=== PATIENT | male | born 1945 | race Caucasian/White ===

== ENCOUNTER 2023-05-27 20:15 | Emergency (ER) | payer MEDICARE ==
[2023-05-27] MEDS ORDERED: Sodium Chloride 0.9% 1,000 ML IV ONE ×2 (20:52→22:16)
[2023-05-27 21:09] LABS: BASOPHILS ABSOLUTE AUTO 0.01 K/uL (0.00-0.10); BASOPHILS PERCENT AUTO 0.1 % (0.1-1.3); HEMATOCRIT 38.2 % (38.4-49.7); HEMOGLOBIN 12.6 g/dL (12.9-16.9); IMMATURE GRAN ABSOLUTE AUTO 0.03 K/uL (0.00-0.23); IMMATURE GRAN PERCENT AUTO 0.4 % (0.0-0.7); LYMPHOCYTES ABSOLUTE AUTO 0.86 K/uL (0.8-3.3); LYMPHOCYTES PERCENT AUTO 10.3 % (11.4-47.7); MEAN CORPUSCULAR HEMOGLOBIN 31.5 pg (31.6-35.5); MEAN CORPUSCULAR VOLUME 95.5 fL (81.4-99.0); MONOCYTES ABSOLUTE AUTO 0.34 K/uL (0.20-0.90); MONOCYTES PERCENT AUTO 4.1 % (3.3-12.6); NEUTROPHILS ABSOLUTE AUTO 7.12 K/uL (1.0-7.6); NEUTROPHILS PERCENT AUTO 85.1 % (40.0-78.1); PLATELET COUNT,PLT 248 K/uL (130-375); WHITE BLOOD CELL COUNT,WBC 8.4 K/uL (3.2-11.0)
[2023-05-27] MEDS ORDERED: Aspirin 81 MG Tab.Chew PO ONE (21:12)
[2023-05-27] MEDS ORDERED: Sodium Chloride 0.9% 50 ML IV SCH (21:30)
[2023-05-27] MEDS ORDERED: Iopamidol 612 MG/ML 100 ML Bottle IV SCH (21:30)
[2023-05-27 21:32] LABS: CALCIUM 8.7 mg/dL (8.5-10.1); CREATININE 1.6 mg/dL (0.8-1.3); EST CRCL DRUG DOSING (CG) 41.09 mL/min; POTASSIUM,K 4.7 mmol/L (3.6-5.2)
[2023-05-27 21:33] LABS: ANION GAP 14.7 mmol/L (5.0-14.0); TROPONIN I HIGH SENSITIVITY 83.4 pg/mL (<=60.3)
[2023-05-27] MEDS ORDERED: Diltiazem 25 MG/5 ML SDV IVPUSH ONE ×2 (21:47→22:10)
[2023-05-27] MEDS ORDERED: Amiodarone 150 MG/3 ML SDV IVPUSH ONE ×2 (23:33→23:39)
[2023-05-27] MEDS ORDERED: Amiodarone In Dextrose,Iso-Osm 150 MG in Premix Bag 1 BAG IV ONE ×4 (23:45→23:55)
== END 2023-05-28 03:03 | disposition home or self-care (01) ==
LOC: JP.ED 20:15
DX: K59.00 Constipation, unspecified (principal); I47.20 Ventricular tachycardia, unspecified; I48.91 Unspecified atrial fibrillation; E78.00 Pure hypercholesterolemia, unspecified; I10 Essential (primary) hypertension; I25.2 Old myocardial infarction; K21.9 Gastro-esophageal reflux disease without esophagitis; Z95.810 Presence of automatic (implantable) cardiac defibrillator; Z95.5 Presence of coronary angioplasty implant and graft; Z87.891 Personal history of nicotine dependence; Z79.01 Long term (current) use of anticoagulants; Z79.02 Long term (current) use of antithrombotics/antiplatelets; Z79.899 Other long term (current) drug therapy; Z88.8 Allergy status to other drugs, medicaments and biological substances
CPT/HCPCS: 36415; 71045; 71045-26; 74177; 80048; 83605; 84484; 85025; 86140; 93005; 96361; 96365; 96375; 99284-25; A9270-GY; J0282; J3490; J7030; Q9967

== ENCOUNTER 2023-06-24 23:29 | Emergency (ER) | payer MEDICARE ==
[2023-06-24] MEDS ORDERED: Sodium Chloride 0.9% 10 ML Syringe FLUSH PRN (23:31)
[2023-06-24 23:40] LABS: EOSINOPHILS ABSOLUTE AUTO 0.02 K/uL (0.00-0.40); EOSINOPHILS PERCENT AUTO 0.3 % (0.0-5.4); HEMATOCRIT 36.5 % (38.4-49.7); HEMOGLOBIN 11.5 g/dL (12.9-16.9); IMMATURE GRAN ABSOLUTE AUTO 0.01 K/uL (0.00-0.23); IMMATURE GRAN PERCENT AUTO 0.2 % (0.0-0.7); LYMPHOCYTES ABSOLUTE AUTO 0.57 K/uL (0.8-3.3); LYMPHOCYTES PERCENT AUTO 8.8 % (11.4-47.7); MEAN CORPUSCULAR HGB CONC 31.5 g/dL (31.6-35.5); MEAN CORPUSCULAR VOLUME 98.4 fL (81.4-99.0); MONOCYTES ABSOLUTE AUTO 0.55 K/uL (0.20-0.90); MONOCYTES PERCENT AUTO 8.5 % (3.3-12.6); NEUTROPHILS ABSOLUTE AUTO 5.34 K/uL (1.0-7.6); NEUTROPHILS PERCENT AUTO 82.2 % (40.0-78.1); PLATELET COUNT,PLT 159 K/uL (130-375); RED BLOOD CELL COUNT 3.71 M/uL (4.14-5.76); WHITE BLOOD CELL COUNT,WBC 6.5 K/uL (3.2-11.0)
[2023-06-24 23:50] LABS: A/G RATIO 1.3 (1.2-2.2); ALANINE AMINOTRANSFERASE,ALT 31 U/L (12-78); ALBUMIN 3.1 g/dL (3.4-5.0); ALKALINE PHOSPHATASE 77 U/L (46-116); ANION GAP 7.8 mmol/L (5.0-14.0); ASPARTATE AMNIOTRANSFERASE,AST 20 U/L (15-37); BILIRUBIN TOTAL 0.6 mg/dL (0.2-1.0); BLOOD UREA NITROGEN,BUN 27 mg/dL (7-18); CALCIUM 8.4 mg/dL (8.5-10.1); CARBON DIOXIDE,CO2 26 mmol/L (21-32); CHLORIDE,CL 106 mmol/L (100-108); CREATININE 1.4 mg/dL (0.8-1.3); EST CRCL DRUG DOSING (CG) 45.57 mL/min; ESTIMATED GFR 51 mL/min (>60); GLUCOSE RANDOM 124 mg/dL (74-106); POTASSIUM,K 3.8 mmol/L (3.6-5.2); PROTEIN TOTAL,TP 5.5 g/dL (6.4-8.2); SODIUM,NA 140 mmol/L (140-148); TROPONIN I HIGH SENSITIVITY 25.2 pg/mL (<=60.3)
[2023-06-25 02:16] LABS: APPEARANCE,URINE CLEAR (CLEAR); BILIRUBIN,URINE NEGATIVE (NEGATIVE); COLOR,URINE YELLOW (YELLOW); GLUCOSE,URINE 500 mg/dL (NEGATIVE); KETONES,URINE NEGATIVE (NEGATIVE); LEUKOCYTE ESTERASE,URINE NEGATIVE (NEGATIVE); NITRITE,URINE NEGATIVE (NEGATIVE); OCCULT BLOOD,URINE NEGATIVE (NEGATIVE); PH,URINE 5.5 (5.0-8.0); PROTEIN,URINE 30 mg/dL (NEGATIVE)
[2023-06-25 02:24] LABS: AMORPHOUS SEDIMENT,URINE NOT SEEN; BACTERIA,URINE RARE; EPITHELIAL CELLS,URINE RARE; MUCUS,URINE NOT SEEN; RBC,URINE 0-5 (0-5); WBC,URINE 0-5 (0-5)
[2023-06-25] MEDS ORDERED: Furosemide 40 MG/4 ML VIAL IVPUSH ONE (03:11)
== END 2023-06-25 04:46 | disposition home or self-care (01) ==
LOC: JP.ED 23:29
DX: I11.0 Hypertensive heart disease with heart failure (principal); I50.23 Acute on chronic systolic (congestive) heart failure; E78.00 Pure hypercholesterolemia, unspecified; I25.10 Atherosclerotic heart disease of native coronary artery without angina pectoris; I25.2 Old myocardial infarction; L21.9 Seborrheic dermatitis, unspecified; Z95.5 Presence of coronary angioplasty implant and graft; Z79.01 Long term (current) use of anticoagulants; Z79.899 Other long term (current) drug therapy
CPT/HCPCS: 36415; 71045; 80053; 81001; 83880; 84484; 85025; 96374; 99285; J1940; J3490

== ENCOUNTER 2023-06-26 15:17 | Inpatient (IN) | payer MEDICARE ==
[2023-06-26 16:57] LABS: BASE EXCESS ARTERIAL 0.7 mm/L; CARBOXYHEMOGLOBIN 3.2 % (0.0-1.6); O2 SATURATION ARTERIAL 97.4 % (95.0-98.0); OXYHEMOGLOBIN 93.3 %; PCO2 ARTERIAL 30.7 mmHg (35.0-42.0); PO2 ARTERIAL 87.4 mmHg (75.0-100.0); TOTAL HEMOGLOBIN 12.2 g/dL (13.5-18.0)
[2023-06-26] MEDS ORDERED: Sodium Chloride 0.9% 1,000 ML IV SCH ×2 (17:00→18:15)
[2023-06-26 17:39] LABS: BASOPHILS PERCENT AUTO 0.2 % (0.1-1.3); EOSINOPHILS ABSOLUTE AUTO 0.06 K/uL (0.00-0.40); HEMATOCRIT 38.4 % (38.4-49.7); IMMATURE GRAN PERCENT AUTO 0.2 % (0.0-0.7); LYMPHOCYTES ABSOLUTE AUTO 0.83 K/uL (0.8-3.3); LYMPHOCYTES PERCENT AUTO 13.2 % (11.4-47.7); MEAN CORPUSCULAR HEMOGLOBIN 30.7 pg (31.6-35.5); MEAN CORPUSCULAR HGB CONC 31.3 g/dL (31.6-35.5); MEAN CORPUSCULAR VOLUME 98.2 fL (81.4-99.0); MONOCYTES ABSOLUTE AUTO 0.71 K/uL (0.20-0.90); MONOCYTES PERCENT AUTO 11.3 % (3.3-12.6); NEUTROPHILS ABSOLUTE AUTO 4.69 K/uL (1.0-7.6); NEUTROPHILS PERCENT AUTO 74.1 % (40.0-78.1); PLATELET COUNT,PLT 167 K/uL (130-375); RED BLOOD CELL COUNT 3.91 M/uL (4.14-5.76); WHITE BLOOD CELL COUNT,WBC 6.3 K/uL (3.2-11.0)
[2023-06-26 17:40] LABS: BASOPHILS ABSOLUTE AUTO 0.01 K/uL (0.00-0.10); IMMATURE GRAN ABSOLUTE AUTO 0.01 K/uL (0.00-0.23)
[2023-06-26 18:10] LABS: SODIUM,NA 142 mmol/L (140-148)
[2023-06-26 18:11] LABS: A/G RATIO 1.1 (1.2-2.2); ALANINE AMINOTRANSFERASE,ALT 28 U/L (12-78); ALBUMIN 2.9 g/dL (3.4-5.0); ALKALINE PHOSPHATASE 75 U/L (46-116); ASPARTATE AMNIOTRANSFERASE,AST 21 U/L (15-37); BILIRUBIN TOTAL 0.8 mg/dL (0.2-1.0); BLOOD UREA NITROGEN,BUN 24 mg/dL (7-18); CALCIUM 8.2 mg/dL (8.5-10.1); CARBON DIOXIDE,CO2 24 mmol/L (21-32); CHLORIDE,CL 107 mmol/L (100-108); CREATININE 1.2 mg/dL (0.8-1.3); EST CRCL DRUG DOSING (CG) 53.16 mL/min; ESTIMATED GFR 62 mL/min (>60); GLUCOSE RANDOM 101 mg/dL (74-106); POTASSIUM,K 3.2 mmol/L (3.6-5.2); PROTEIN TOTAL,TP 5.5 g/dL (6.4-8.2)
[2023-06-26 18:12] LABS: ANION GAP 14.2 mmol/L (5.0-14.0)
[2023-06-26] MEDS ORDERED: Furosemide 40 MG/4 ML VIAL IVPUSH ONE (18:14)
[2023-06-26] MEDS ORDERED: Potassium Chloride 20 MEQ Tab.ER PO ONE ×2 (18:16→20:41)
[2023-06-26 18:40] LABS: CORONAVIRUS COVID-19 NAA NEGATIVE (NEGATIVE); INFLUENZA A NAA NEGATIVE (NEGATIVE); INFLUENZA B NAA NEGATIVE (NEGATIVE); RESPIRATORY SYNCYTIAL VIR NAA NEGATIVE (NEGATIVE)
[2023-06-26 19:02] LABS: APPEARANCE,URINE CLEAR (CLEAR); BILIRUBIN,URINE NEGATIVE (NEGATIVE); COLOR,URINE YELLOW (YELLOW); GLUCOSE,URINE 500 mg/dL (NEGATIVE); KETONES,URINE NEGATIVE (NEGATIVE); LEUKOCYTE ESTERASE,URINE NEGATIVE (NEGATIVE); NITRITE,URINE NEGATIVE (NEGATIVE); OCCULT BLOOD,URINE NEGATIVE (NEGATIVE); PROTEIN,URINE NEGATIVE (NEGATIVE)
[2023-06-26 19:09] LABS: AMORPHOUS SEDIMENT,URINE NOT SEEN; BACTERIA,URINE FEW; EPITHELIAL CELLS,URINE FEW; MUCUS,URINE MODERATE; RBC,URINE 0-5 (0-5)
[2023-06-26] MEDS ORDERED: Ondansetron 4 MG Tab.DIS PO PRN (20:41)
[2023-06-26] MEDS ORDERED: Sennosides/Docusate Sodium 50-8.6 MG Tab PO PRN (20:41)
[2023-06-26] MEDS ORDERED: Magnesium Hydroxide 400 MG/5 ML Susp 30 ML Cup PO PRN (20:41)
[2023-06-26] MEDS ORDERED: Acetaminophen 325 MG Tab PO PRN (20:41)
[2023-06-26] MEDS ORDERED: Ondansetron 4 MG/2 ML SDV IV PRN (20:41)
[2023-06-26] MEDS ORDERED: Non-Formulary Medication 1 Each (Melatonin [Melatonin] 10 MG Tablet) PO SCH (21:00)
[2023-06-26] MEDS: Gabapentin 400 MG Cap PO SCH (21:17)
[2023-06-26] MEDS: Docusate Sodium 100 MG Cap PO SCH (21:17)
[2023-06-26] MEDS: traZODone 50 MG Tab PO SCH (21:18)
[2023-06-26] MEDS: Carvedilol 3.125 MG Tab PO SCH (21:18)
[2023-06-26] MEDS: Apixaban 5 MG Tab PO SCH (21:18)
[2023-06-26] MEDS: Melatonin 3 MG Tab PO SCH (21:18)
[2023-06-27] MEDS: Furosemide 40 MG/4 ML VIAL IVPUSH SCH ×3 (02:37→23:45)
[2023-06-27 06:02] LABS: HEMATOCRIT 36.3 % (38.4-49.7); HEMOGLOBIN 11.5 g/dL (12.9-16.9); MEAN CORPUSCULAR HEMOGLOBIN 30.9 pg (31.6-35.5); MEAN CORPUSCULAR HGB CONC 31.7 g/dL (31.6-35.5); MEAN CORPUSCULAR VOLUME 97.6 fL (81.4-99.0); RED BLOOD CELL COUNT 3.72 M/uL (4.14-5.76); WHITE BLOOD CELL COUNT,WBC 5.1 K/uL (3.2-11.0)
[2023-06-27 06:30] LABS: IRON,FE 39 ug/dL (65-175); PERCENT FE SATURATION 21 % (20-55); TOTAL IRON BINDING CAPACITY 186 ug/dl (250-450)
[2023-06-27 06:34] LABS: CALCIUM 7.9 mg/dL (8.5-10.1); CREATININE 1.3 mg/dL (0.8-1.3); EST CRCL DRUG DOSING (CG) 49.07 mL/min
[2023-06-27 06:37] LABS: ANION GAP 13.9 mmol/L (5.0-14.0); POTASSIUM,K 2.9 mmol/L (3.6-5.2)
[2023-06-27] MEDS ORDERED: Potassium Chloride 20 MEQ Tab.ER PO ONE ×2 (08:00→12:30)
[2023-06-27] MEDS: Gabapentin 400 MG Cap PO SCH ×3 (08:17→20:06)
[2023-06-27] MEDS: Rosuvastatin 10 MG Tab PO SCH (08:17)
[2023-06-27] MEDS: Carvedilol 3.125 MG Tab PO SCH ×2 (08:17→17:25)
[2023-06-27] MEDS: Losartan 25 MG Tab PO SCH (08:19)
[2023-06-27] MEDS: Tamsulosin 0.4 MG Cap.ER PO SCH (08:19)
[2023-06-27] MEDS: Isosorbide Mononitrate 30 MG Tab.ER PO SCH (08:19)
[2023-06-27] MEDS: Pantoprazole 40 MG Tab.CR PO SCH (08:20)
[2023-06-27] MEDS: Docusate Sodium 100 MG Cap PO SCH ×2 (08:20→20:06)
[2023-06-27] MEDS: DULoxetine 30 MG Cap PO SCH (08:20)
[2023-06-27] MEDS: Empagliflozin 10 MG Tab PO SCH (08:20)
[2023-06-27] MEDS: Amiodarone 200 MG Tab PO SCH (08:20)
[2023-06-27] MEDS: Apixaban 5 MG Tab PO SCH ×2 (08:20→20:06)
[2023-06-27] MEDS: Clopidogrel 75 MG Tab PO SCH (08:20)
[2023-06-27] MEDS: Cyanocobalamin (Vitamin B12) 1,000 MCG Tab PO SCH (08:20)
[2023-06-27] MEDS: Nystatin Topical Powder 15 GM Bottle TOP SCH ×3 (11:24→20:07)
[2023-06-27] MEDS: Melatonin 3 MG Tab PO SCH (20:06)
[2023-06-27] MEDS: Potassium Chloride 20 MEQ Tab.ER PO SCH (20:06)
[2023-06-27] MEDS: traZODone 50 MG Tab PO SCH (20:07)
[2023-06-28 06:19] LABS: CALCIUM 7.8 mg/dL (8.5-10.1); CREATININE 1.3 mg/dL (0.8-1.3); EST CRCL DRUG DOSING (CG) 49.07 mL/min
[2023-06-28] MEDS: Isosorbide Mononitrate 30 MG Tab.ER PO SCH (07:21)
[2023-06-28] MEDS: Carvedilol 3.125 MG Tab PO SCH ×2 (07:22→16:26)
[2023-06-28] MEDS: Pantoprazole 40 MG Tab.CR PO SCH (07:22)
[2023-06-28] MEDS: Docusate Sodium 100 MG Cap PO SCH ×2 (08:51→20:51)
[2023-06-28] MEDS: Losartan 25 MG Tab PO SCH (08:51)
[2023-06-28] MEDS: Tamsulosin 0.4 MG Cap.ER PO SCH (08:51)
[2023-06-28] MEDS: Amiodarone 200 MG Tab PO SCH (08:51)
[2023-06-28] MEDS: Gabapentin 400 MG Cap PO SCH ×3 (08:51→20:52)
[2023-06-28] MEDS: Potassium Chloride 10 MEQ in Premix Bag 1 BAG IV SCH ×2 (08:51→10:00)
[2023-06-28] MEDS: Rosuvastatin 10 MG Tab PO SCH (08:52)
[2023-06-28] MEDS: Nystatin Topical Powder 15 GM Bottle TOP SCH ×3 (08:52→20:53)
[2023-06-28] MEDS: Potassium Chloride 20 MEQ Tab.ER PO SCH ×2 (08:52→20:52)
[2023-06-28] MEDS: Cyanocobalamin (Vitamin B12) 1,000 MCG Tab PO SCH (08:52)
[2023-06-28] MEDS: Apixaban 5 MG Tab PO SCH ×2 (08:52→20:51)
[2023-06-28] MEDS: DULoxetine 30 MG Cap PO SCH (08:52)
[2023-06-28] MEDS: Empagliflozin 10 MG Tab PO SCH (08:53)
[2023-06-28] MEDS: Clopidogrel 75 MG Tab PO SCH (08:53)
[2023-06-28] MEDS: Furosemide 40 MG/4 ML VIAL IVPUSH SCH ×2 (10:03→23:27)
[2023-06-28] MEDS ORDERED: Potassium Chloride 20 MEQ Tab.ER PO ONE (16:00)
[2023-06-28] MEDS: Melatonin 3 MG Tab PO SCH (20:52)
[2023-06-28] MEDS: traZODone 50 MG Tab PO SCH (20:53)
[2023-06-29 05:51] LABS: CALCIUM 8.3 mg/dL (8.5-10.1); CREATININE 1.3 mg/dL (0.8-1.3); EST CRCL DRUG DOSING (CG) 49.07 mL/min; POTASSIUM,K 3.3 mmol/L (3.6-5.2)
[2023-06-29 06:01] LABS: ANION GAP 10.3 mmol/L (5.0-14.0)
[2023-06-29] MEDS: Isosorbide Mononitrate 30 MG Tab.ER PO SCH (07:38)
[2023-06-29] MEDS: Pantoprazole 40 MG Tab.CR PO SCH (07:38)
[2023-06-29] MEDS: Gabapentin 400 MG Cap PO SCH ×3 (08:51→20:09)
[2023-06-29] MEDS: Carvedilol 3.125 MG Tab PO SCH ×2 (08:52→17:09)
[2023-06-29] MEDS: Clopidogrel 75 MG Tab PO SCH (08:52)
[2023-06-29] MEDS: Amiodarone 200 MG Tab PO SCH (08:52)
[2023-06-29] MEDS: Docusate Sodium 100 MG Cap PO SCH ×2 (08:52→20:08)
[2023-06-29] MEDS: Cyanocobalamin (Vitamin B12) 1,000 MCG Tab PO SCH (08:53)
[2023-06-29] MEDS: Rosuvastatin 10 MG Tab PO SCH (08:53)
[2023-06-29] MEDS: Potassium Chloride 20 MEQ Tab.ER PO SCH ×2 (08:53→20:09)
[2023-06-29] MEDS: Losartan 25 MG Tab PO SCH (08:53)
[2023-06-29] MEDS: DULoxetine 30 MG Cap PO SCH (08:53)
[2023-06-29] MEDS: Nystatin Topical Powder 15 GM Bottle TOP SCH ×3 (08:54→20:09)
[2023-06-29] MEDS: Apixaban 5 MG Tab PO SCH ×2 (08:54→20:08)
[2023-06-29] MEDS: Empagliflozin 10 MG Tab PO SCH (08:54)
[2023-06-29] MEDS: Tamsulosin 0.4 MG Cap.ER PO SCH (08:54)
[2023-06-29] MEDS ORDERED: FLU (Fluad Quad) 2023-24(65UP)/MF59C/PF 60 MCG/0.5 ML Syringe IM ONE (09:00)
[2023-06-29] MEDS: Furosemide 40 MG/4 ML VIAL IVPUSH SCH ×2 (10:25→23:18)
[2023-06-29] MEDS ORDERED: Mineral Oil/Petrolatum Oint 100 GM OINT TOP PRN (11:38)
[2023-06-29] MEDS: Melatonin 3 MG Tab PO SCH (20:08)
[2023-06-29] MEDS: traZODone 50 MG Tab PO SCH (20:08)
[2023-06-30] MEDS: Isosorbide Mononitrate 30 MG Tab.ER PO SCH (07:22)
[2023-06-30] MEDS: Pantoprazole 40 MG Tab.CR PO SCH (07:22)
[2023-06-30] MEDS: Carvedilol 3.125 MG Tab PO SCH ×2 (07:23→16:52)
[2023-06-30] MEDS: Rosuvastatin 10 MG Tab PO SCH (08:38)
[2023-06-30] MEDS: Gabapentin 400 MG Cap PO SCH ×3 (08:39→21:47)
[2023-06-30] MEDS: Empagliflozin 10 MG Tab PO SCH (08:39)
[2023-06-30] MEDS: DULoxetine 30 MG Cap PO SCH (08:39)
[2023-06-30] MEDS: Clopidogrel 75 MG Tab PO SCH (08:39)
[2023-06-30] MEDS: Tamsulosin 0.4 MG Cap.ER PO SCH (08:39)
[2023-06-30] MEDS: Apixaban 5 MG Tab PO SCH ×2 (08:39→21:48)
[2023-06-30] MEDS: Cyanocobalamin (Vitamin B12) 1,000 MCG Tab PO SCH (08:39)
[2023-06-30] MEDS: Losartan 25 MG Tab PO SCH (08:39)
[2023-06-30] MEDS: Potassium Chloride 20 MEQ Tab.ER PO SCH ×2 (08:39→21:48)
[2023-06-30] MEDS: Nystatin Topical Powder 15 GM Bottle TOP SCH ×3 (08:40→21:48)
[2023-06-30] MEDS: Docusate Sodium 100 MG Cap PO SCH ×2 (08:40→21:48)
[2023-06-30] MEDS: Amiodarone 200 MG Tab PO SCH (08:40)
[2023-06-30] MEDS: Furosemide 40 MG/4 ML VIAL IVPUSH SCH (11:17)
[2023-06-30] MEDS ORDERED: Potassium Chloride 20 MEQ Tab.ER PO ONE (14:00)
[2023-06-30] MEDS: Melatonin 3 MG Tab PO SCH (21:48)
[2023-06-30] MEDS: traZODone 50 MG Tab PO SCH (21:48)
[2023-06-30] MEDS: Furosemide 40 MG Tab PO SCH (22:00)
[2023-07-01] MEDS: Isosorbide Mononitrate 30 MG Tab.ER PO SCH (07:44)
[2023-07-01] MEDS: Pantoprazole 40 MG Tab.CR PO SCH (07:45)
[2023-07-01] MEDS: Carvedilol 3.125 MG Tab PO SCH (07:45)
[2023-07-01] MEDS: DULoxetine 30 MG Cap PO SCH (10:01)
[2023-07-01] MEDS: Apixaban 5 MG Tab PO SCH (10:01)
[2023-07-01] MEDS: Empagliflozin 10 MG Tab PO SCH (10:01)
[2023-07-01] MEDS: Amiodarone 200 MG Tab PO SCH (10:02)
[2023-07-01] MEDS: Losartan 25 MG Tab PO SCH (10:02)
[2023-07-01] MEDS: Rosuvastatin 10 MG Tab PO SCH (10:02)
[2023-07-01] MEDS: Tamsulosin 0.4 MG Cap.ER PO SCH (10:02)
[2023-07-01] MEDS: Potassium Chloride 20 MEQ Tab.ER PO SCH (10:02)
[2023-07-01] MEDS: Gabapentin 400 MG Cap PO SCH (10:03)
[2023-07-01] MEDS: Nystatin Topical Powder 15 GM Bottle TOP SCH (10:03)
[2023-07-01] MEDS: Clopidogrel 75 MG Tab PO SCH (10:04)
[2023-07-01] MEDS: Cyanocobalamin (Vitamin B12) 1,000 MCG Tab PO SCH (10:04)
[2023-07-01] MEDS: Docusate Sodium 100 MG Cap PO SCH (10:04)
[2023-07-01] MEDS: Furosemide 40 MG Tab PO SCH (11:46)
== END 2023-07-01 13:15 | disposition home health service (06) | DRG 291 ==
LOC: JP.ED 15:17 → JP.MS 19:15
PROVIDERS: ADMIT Internal Medicine; ATTEND Internal Medicine
DX: I11.0 Hypertensive heart disease with heart failure (principal); I13.0 Hypertensive heart and chronic kidney disease with heart failure and stage 1 through stage 4 chronic kidney disease, or unspecified chronic kidney disease; I50.23 Acute on chronic systolic (congestive) heart failure; I48.91 Unspecified atrial fibrillation; I48.20 Chronic atrial fibrillation, unspecified; I25.5 Ischemic cardiomyopathy; Z66 Do not resuscitate; N18.31 Chronic kidney disease, stage 3a; E87.6 Hypokalemia; I25.10 Atherosclerotic heart disease of native coronary artery without angina pectoris; H91.90 Unspecified hearing loss, unspecified ear; Z20.822 Contact with and (suspected) exposure to COVID-19; E78.00 Pure hypercholesterolemia, unspecified; K59.09 Other constipation; K21.9 Gastro-esophageal reflux disease without esophagitis; D63.1 Anemia in chronic kidney disease; Z87.891 Personal history of nicotine dependence; Z79.01 Long term (current) use of anticoagulants; Z79.02 Long term (current) use of antithrombotics/antiplatelets; I25.2 Old myocardial infarction; Z79.899 Other long term (current) drug therapy; Z88.8 Allergy status to other drugs, medicaments and biological substances; Z95.5 Presence of coronary angioplasty implant and graft; Z11.52 Encounter for screening for COVID-19
CPT/HCPCS: 0241U; 36415; 36600; 71045; 80048; 80053; 81001; 82728; 82803; 83550; 83735; 83880; 84132; 85025; 85027; 86140; 90694; 93005; 97110; 97116; 97161; 97530; 93010; 99222; 99232; 99238; 99285; A9270-GY; C1758; G0008; J1940; J3480; J7030

== ENCOUNTER 2023-11-02 15:36 | Emergency (ER) | payer MEDICARE ==
[2023-11-02 16:01] LABS: BASOPHILS ABSOLUTE AUTO 0.03 K/uL (0.00-0.10); BASOPHILS PERCENT AUTO 0.7 % (0.1-1.3); EOSINOPHILS ABSOLUTE AUTO 0.11 K/uL (0.00-0.40); EOSINOPHILS PERCENT AUTO 2.7 % (0.0-5.4); HEMATOCRIT 32.2 % (38.4-49.7); HEMOGLOBIN 10.2 g/dL (12.9-16.9); IMMATURE GRAN PERCENT AUTO 0.2 % (0.0-0.7); LYMPHOCYTES ABSOLUTE AUTO 0.97 K/uL (0.8-3.3); LYMPHOCYTES PERCENT AUTO 23.8 % (11.4-47.7); MEAN CORPUSCULAR HEMOGLOBIN 27.2 pg (31.6-35.5); MEAN CORPUSCULAR HGB CONC 31.7 g/dL (31.6-35.5); MEAN CORPUSCULAR VOLUME 85.9 fL (81.4-99.0); MONOCYTES ABSOLUTE AUTO 0.51 K/uL (0.20-0.90); MONOCYTES PERCENT AUTO 12.5 % (3.3-12.6); NEUTROPHILS ABSOLUTE AUTO 2.45 K/uL (1.0-7.6); NEUTROPHILS PERCENT AUTO 60.1 % (40.0-78.1); PLATELET COUNT,PLT 128 K/uL (130-375); RED BLOOD CELL COUNT 3.75 M/uL (4.14-5.76); WHITE BLOOD CELL COUNT,WBC 4.1 K/uL (3.2-11.0)
[2023-11-02 16:04] LABS: IMMATURE GRAN ABSOLUTE AUTO 0.01 K/uL (0.00-0.23)
[2023-11-02] MEDS: Sodium Chloride 0.9% 1,000 ML IV SCH (16:05)
[2023-11-02 16:26] LABS: CREATININE 1.7 mg/dL (0.8-1.3); EST CRCL DRUG DOSING (CG) 37.53 mL/min; POTASSIUM,K 4.4 mmol/L (3.6-5.2); TROPONIN I HIGH SENSITIVITY 11.2 pg/mL (<=60.3)
[2023-11-02 16:32] LABS: ANION GAP 10.4 mmol/L (5.0-14.0)
[2023-11-02] MEDS: Sodium Chloride 0.9% 500 ML IV ONE (17:19)
== END 2023-11-02 18:44 | disposition home or self-care (01) ==
LOC: JP.ED 15:36
DX: E86.0 Dehydration (principal); I11.0 Hypertensive heart disease with heart failure; I50.9 Heart failure, unspecified; I25.10 Atherosclerotic heart disease of native coronary artery without angina pectoris; I25.2 Old myocardial infarction; K21.9 Gastro-esophageal reflux disease without esophagitis; Z88.8 Allergy status to other drugs, medicaments and biological substances; Z79.899 Other long term (current) drug therapy
CPT/HCPCS: 36415; 71045; 80048; 84484; 85025; 93005; 96360; 96361; 99285; J7030; J7040; 93010; 99284

== ENCOUNTER 2024-02-02 02:33 | Emergency (ER) | payer MEDICARE ==
[2024-02-02] MEDS ORDERED: Nitroglycerin 0.4 MG Tab.SL SL PRN (02:52)
[2024-02-02 03:06] LABS: BASOPHILS ABSOLUTE AUTO 0.02 K/uL (0.00-0.10); BASOPHILS PERCENT AUTO 0.4 % (0.1-1.3); EOSINOPHILS ABSOLUTE AUTO 0.06 K/uL (0.00-0.40); EOSINOPHILS PERCENT AUTO 1.1 % (0.0-5.4); HEMATOCRIT 37.9 % (38.4-49.7); IMMATURE GRAN ABSOLUTE AUTO 0.01 K/uL (0.00-0.23); IMMATURE GRAN PERCENT AUTO 0.2 % (0.0-0.7); LYMPHOCYTES ABSOLUTE AUTO 0.61 K/uL (0.8-3.3); LYMPHOCYTES PERCENT AUTO 10.8 % (11.4-47.7); MEAN CORPUSCULAR HEMOGLOBIN 26.3 pg (31.6-35.5); MEAN CORPUSCULAR HGB CONC 31.7 g/dL (31.6-35.5); MEAN CORPUSCULAR VOLUME 82.9 fL (81.4-99.0); MONOCYTES ABSOLUTE AUTO 0.49 K/uL (0.20-0.90); MONOCYTES PERCENT AUTO 8.6 % (3.3-12.6); NEUTROPHILS ABSOLUTE AUTO 4.48 K/uL (1.0-7.6); NEUTROPHILS PERCENT AUTO 78.9 % (40.0-78.1); PLATELET COUNT,PLT 124 K/uL (130-375); RED BLOOD CELL COUNT 4.57 M/uL (4.14-5.76); WHITE BLOOD CELL COUNT,WBC 5.7 K/uL (3.2-11.0)
[2024-02-02 03:24] LABS: A/G RATIO 0.9 (1.2-2.2); ALANINE AMINOTRANSFERASE,ALT 25 U/L (12-78); ALBUMIN 2.9 g/dL (3.4-5.0); ALKALINE PHOSPHATASE 175 U/L (46-116); ASPARTATE AMNIOTRANSFERASE,AST 26 U/L (15-37); BILIRUBIN TOTAL 0.8 mg/dL (0.2-1.0); BLOOD UREA NITROGEN,BUN 20 mg/dL (7-18); CALCIUM 8.7 mg/dL (8.5-10.1); CARBON DIOXIDE,CO2 28 mmol/L (21-32); CHLORIDE,CL 100 mmol/L (100-108); CREATININE 1.5 mg/dL (0.8-1.3); ESTIMATED GFR 47 mL/min (>60); GLUCOSE RANDOM 120 mg/dL (74-106); POTASSIUM,K 4.8 mmol/L (3.6-5.2); PROTEIN TOTAL,TP 6.3 g/dL (6.4-8.2); SODIUM,NA 138 mmol/L (140-148); TROPONIN I HIGH SENSITIVITY 15.9 pg/mL (<=60.3)
[2024-02-02 03:25] LABS: ANION GAP 14.8 mmol/L (5.0-14.0)
[2024-02-02] MEDS: Aspirin 81 MG Tab.Chew PO ONE (04:07)
== END 2024-02-02 06:56 | disposition home or self-care (01) ==
LOC: JP.ED 02:33
DX: R07.89 Other chest pain (principal); I11.0 Hypertensive heart disease with heart failure; I50.9 Heart failure, unspecified; I25.10 Atherosclerotic heart disease of native coronary artery without angina pectoris; I25.2 Old myocardial infarction; I48.91 Unspecified atrial fibrillation; K21.9 Gastro-esophageal reflux disease without esophagitis; Z95.5 Presence of coronary angioplasty implant and graft; Z79.01 Long term (current) use of anticoagulants; Z79.899 Other long term (current) drug therapy; Z88.8 Allergy status to other drugs, medicaments and biological substances
CPT/HCPCS: 36415; 71045; 80053; 83690; 84484; 85025; 99285; A9270

== ENCOUNTER 2024-02-07 03:17 | Inpatient (IN) | payer MEDICARE ==
[2024-02-07] MEDS ORDERED: Morphine 2 MG/ML SYRINGE IVPUSH PRN (03:38)
[2024-02-07] MEDS ORDERED: Bumetanide 2.5 MG/10 ML MDV IVPUSH SCH (03:45)
[2024-02-07] MEDS: Bumetanide 2.5 MG/10 ML MDV IVPUSH STA (03:56)
[2024-02-07 03:57] LABS: BASOPHILS ABSOLUTE AUTO 0.02 K/uL (0.00-0.10); BASOPHILS PERCENT AUTO 0.3 % (0.1-1.3); EOSINOPHILS ABSOLUTE AUTO 0.06 K/uL (0.00-0.40); EOSINOPHILS PERCENT AUTO 0.8 % (0.0-5.4); HEMATOCRIT 38.9 % (38.4-49.7); HEMOGLOBIN 12.3 g/dL (12.9-16.9); IMMATURE GRAN ABSOLUTE AUTO 0.01 K/uL (0.00-0.23); IMMATURE GRAN PERCENT AUTO 0.1 % (0.0-0.7); LYMPHOCYTES ABSOLUTE AUTO 0.72 K/uL (0.8-3.3); LYMPHOCYTES PERCENT AUTO 9.1 % (11.4-47.7); MEAN CORPUSCULAR HGB CONC 31.6 g/dL (31.6-35.5); MEAN CORPUSCULAR VOLUME 82.2 fL (81.4-99.0); MONOCYTES ABSOLUTE AUTO 0.67 K/uL (0.20-0.90); MONOCYTES PERCENT AUTO 8.4 % (3.3-12.6); NEUTROPHILS ABSOLUTE AUTO 6.46 K/uL (1.0-7.6); NEUTROPHILS PERCENT AUTO 81.3 % (40.0-78.1); PLATELET COUNT,PLT 95 K/uL (130-375); RED BLOOD CELL COUNT 4.73 M/uL (4.14-5.76); WHITE BLOOD CELL COUNT,WBC 7.9 K/uL (3.2-11.0)
[2024-02-07] MEDS: Sodium Chloride 0.9% 10 ML Syringe FLUSH PRN (03:57)
[2024-02-07 04:19] LABS: A/G RATIO 1.2 (1.2-2.2); ALANINE AMINOTRANSFERASE,ALT 26 U/L (12-78); ALBUMIN 3.7 g/dL (3.4-5.0); ALKALINE PHOSPHATASE 163 U/L (46-116); ASPARTATE AMNIOTRANSFERASE,AST 32 U/L (15-37); BLOOD UREA NITROGEN,BUN 32 mg/dL (7-18); CARBON DIOXIDE,CO2 28 mmol/L (21-32); CHLORIDE,CL 98 mmol/L (100-108); CREATININE 1.6 mg/dL (0.8-1.3); EST CRCL DRUG DOSING (CG) 39.87 mL/min; ESTIMATED GFR 44 mL/min (>60); GLUCOSE RANDOM 99 mg/dL (74-106); POTASSIUM,K 5.6 mmol/L (3.6-5.2); PRO B-TYPE NATRIUR PEPT,BNPPRO 16620 pg/mL (5-450); PROTEIN TOTAL,TP 6.7 g/dL (6.4-8.2); SODIUM,NA 133 mmol/L (140-148); TROPONIN I HIGH SENSITIVITY 16.4 pg/mL (<=60.3)
[2024-02-07 04:22] LABS: ANION GAP 12.6 mmol/L (5.0-14.0)
[2024-02-07 05:12] LABS: APPEARANCE,URINE CLEAR (CLEAR); BILIRUBIN,URINE NEGATIVE (NEGATIVE); COLOR,URINE YELLOW (YELLOW); GLUCOSE,URINE NEGATIVE (NEGATIVE); KETONES,URINE NEGATIVE (NEGATIVE); LEUKOCYTE ESTERASE,URINE NEGATIVE (NEGATIVE); NITRITE,URINE NEGATIVE (NEGATIVE); OCCULT BLOOD,URINE NEGATIVE (NEGATIVE); PROTEIN,URINE NEGATIVE (NEGATIVE); UROBILINOGEN,URINE 0.2 EU/dL (0.2-1.0)
[2024-02-07 05:29] LABS: AMORPHOUS SEDIMENT,URINE NOT SEEN; BACTERIA,URINE FEW; EPITHELIAL CELLS,URINE RARE; MUCUS,URINE NOT SEEN; RBC,URINE 0-5 (0-5); WBC,URINE 0-5 (0-5)
[2024-02-07] MEDS ORDERED: Magnesium Hydroxide 400 MG/5 ML Susp 30 ML Cup PO PRN (09:19)
[2024-02-07] MEDS ORDERED: Sennosides 8.6 MG Tab PO SCH (09:19)
[2024-02-07] MEDS ORDERED: Acetaminophen 325 MG Tab PO PRN (09:19)
[2024-02-07] MEDS ORDERED: Ondansetron 4 MG/2 ML SDV IV PRN (09:19)
[2024-02-07] MEDS ORDERED: Sennosides/Docusate Sodium 50-8.6 MG Tab PO PRN (09:19)
[2024-02-07] MEDS ORDERED: Ondansetron 4 MG Tab.DIS PO PRN (09:19)
[2024-02-07] MEDS: Rosuvastatin 10 MG Tab PO SCH (09:58)
[2024-02-07] MEDS: Clopidogrel 75 MG Tab PO SCH (09:58)
[2024-02-07] MEDS: Empagliflozin 10 MG Tab PO SCH (09:59)
[2024-02-07] MEDS: Gabapentin 300 MG Cap PO SCH (09:59)
[2024-02-07] MEDS: Tamsulosin 0.4 MG Cap.ER PO SCH (09:59)
[2024-02-07] MEDS: Cholecalciferol (Vitamin D3) 25 MCG Tab PO SCH (09:59)
[2024-02-07] MEDS: Pantoprazole 40 MG Tab.CR PO SCH (09:59)
[2024-02-07] MEDS: DULoxetine 30 MG Cap PO SCH (09:59)
[2024-02-07] MEDS: Apixaban 5 MG Tab PO SCH (09:59)
[2024-02-07] MEDS: Amiodarone 200 MG Tab PO SCH (09:59)
[2024-02-07] MEDS: Cyanocobalamin (Vitamin B12) 1,000 MCG Tab PO SCH (09:59)
[2024-02-07] MEDS: Sennosides/Docusate Sodium 50-8.6 MG Tab PO SCH (11:41)
[2024-02-07] MEDS: Bumetanide 2.5 MG/10 ML MDV IVPUSH SCH (15:28)
[2024-02-07] MEDS: Melatonin 3 MG Tab PO SCH (20:51)
[2024-02-07] MEDS: traZODone 50 MG Tab PO SCH (20:52)
[2024-02-07] MEDS: Albuterol 0.083% 2.5 MG/3 ML Neb Soln NEB PRN (23:45)
[2024-02-08] MEDS: diphenhydrAMINE 25 MG Cap PO ONE (01:01)
[2024-02-08 05:28] LABS: HEMATOCRIT 36.6 % (38.4-49.7); HEMOGLOBIN 11.8 g/dL (12.9-16.9); MEAN CORPUSCULAR HGB CONC 32.2 g/dL (31.6-35.5); MEAN CORPUSCULAR VOLUME 80.6 fL (81.4-99.0); RED BLOOD CELL COUNT 4.54 M/uL (4.14-5.76)
[2024-02-08 05:48] LABS: IRON,FE 32 ug/dL (65-175); PERCENT FE SATURATION 11 % (20-55); TOTAL IRON BINDING CAPACITY 288 ug/dl (250-450)
[2024-02-08 05:55] LABS: CALCIUM 8.6 mg/dL (8.5-10.1); CREATININE 1.6 mg/dL (0.8-1.3); EST CRCL DRUG DOSING (CG) 39.87 mL/min; MAGNESIUM 2.2 mg/dL (1.8-2.4)
[2024-02-08] MEDS: Bumetanide 2.5 MG/10 ML MDV IVPUSH SCH (07:45)
[2024-02-09 05:17] LABS: CALCIUM 8.4 mg/dL (8.5-10.1); CREATININE 1.7 mg/dL (0.8-1.3); EST CRCL DRUG DOSING (CG) 37.53 mL/min; POTASSIUM,K 3.1 mmol/L (3.6-5.2)
[2024-02-09 05:19] LABS: ANION GAP 11.1 mmol/L (5.0-14.0)
[2024-02-09] MEDS: Potassium Chloride 20 MEQ Tab.ER PO SCH (08:57)
[2024-02-09] MEDS: Nystatin Topical Powder 15 GM Bottle TOP SCH (12:27)
[2024-02-10 05:02] LABS: CALCIUM 8.7 mg/dL (8.5-10.1); CREATININE 1.6 mg/dL (0.8-1.3); EST CRCL DRUG DOSING (CG) 39.87 mL/min
[2024-02-10] MEDS: Potassium Chloride 20 MEQ Tab.ER PO SCH (08:45)
[2024-02-10] MEDS: Bumetanide 2.5 MG/10 ML MDV IVPUSH SCH (16:14)
[2024-02-11 06:42] LABS: CALCIUM 8.7 mg/dL (8.5-10.1); CREATININE 1.5 mg/dL (0.8-1.3); EST CRCL DRUG DOSING (CG) 42.53 mL/min; POTASSIUM,K 3.7 mmol/L (3.6-5.2)
[2024-02-11] MEDS: Potassium Chloride 20 MEQ Tab.ER PO SCH (17:00)
[2024-02-11] MEDS: Bumetanide 2.5 MG/10 ML MDV IVPUSH SCH (17:02)
[2024-02-12 05:43] LABS: CALCIUM 9.4 mg/dL (8.5-10.1); CREATININE 1.4 mg/dL (0.8-1.3); EST CRCL DRUG DOSING (CG) 45.57 mL/min; MAGNESIUM 2.2 mg/dL (1.8-2.4); POTASSIUM,K 3.7 mmol/L (3.6-5.2)
[2024-02-13 05:14] LABS: ANION GAP 8.8 mmol/L (5.0-14.0); CALCIUM 8.7 mg/dL (8.5-10.1); CREATININE 1.4 mg/dL (0.8-1.3); EST CRCL DRUG DOSING (CG) 45.38 mL/min; POTASSIUM,K 3.9 mmol/L (3.6-5.2)
[2024-02-13] MEDS: Furosemide 40 MG Tab PO SCH (08:08)
== END 2024-02-13 11:22 | disposition home or self-care (01) | DRG 291 ==
LOC: JP.ED 03:17 → JP.MS 08:48
PROVIDERS: ADMIT Internal Medicine; ATTEND Hospitalist
DX: I11.0 Hypertensive heart disease with heart failure (principal); I13.0 Hypertensive heart and chronic kidney disease with heart failure and stage 1 through stage 4 chronic kidney disease, or unspecified chronic kidney disease; I50.23 Acute on chronic systolic (congestive) heart failure; I48.91 Unspecified atrial fibrillation; I48.20 Chronic atrial fibrillation, unspecified; E87.5 Hyperkalemia; I25.2 Old myocardial infarction; Z66 Do not resuscitate; Z95.1 Presence of aortocoronary bypass graft; N18.32 Chronic kidney disease, stage 3b; H91.90 Unspecified hearing loss, unspecified ear; H54.7 Unspecified visual loss; D64.9 Anemia, unspecified; K21.9 Gastro-esophageal reflux disease without esophagitis; I25.5 Ischemic cardiomyopathy; K59.09 Other constipation; R09.02 Hypoxemia; E78.00 Pure hypercholesterolemia, unspecified; I25.10 Atherosclerotic heart disease of native coronary artery without angina pectoris; Z95.5 Presence of coronary angioplasty implant and graft; Z88.8 Allergy status to other drugs, medicaments and biological substances; Z79.01 Long term (current) use of anticoagulants; Z79.02 Long term (current) use of antithrombotics/antiplatelets; Z79.899 Other long term (current) drug therapy; Z95.810 Presence of automatic (implantable) cardiac defibrillator
CPT/HCPCS: 36415; 71045; 80053; 81001; 83605; 83880; 84484; 85025; 93005; 96374; 99285; J3490 ×2; 80048; 82728; 83550; 83735; 84132; 85027; 94640; 97110-GP; 97162-GP; 97165-GO; 97530-GP; 97535-GO; 99222; 99231; 99232; 99238; A9270-GY

== ENCOUNTER 2024-04-30 10:28 | Inpatient (IN) | payer MEDICARE ==
[2024-04-30 11:07] LABS: BASOPHILS PERCENT AUTO 0.2 % (0.1-1.3); EOSINOPHILS ABSOLUTE AUTO 0.04 K/uL (0.00-0.40); EOSINOPHILS PERCENT AUTO 0.8 % (0.0-5.4); HEMATOCRIT 36.8 % (38.4-49.7); HEMOGLOBIN 11.2 g/dL (12.9-16.9); IMMATURE GRAN PERCENT AUTO 0.4 % (0.0-0.7); LYMPHOCYTES ABSOLUTE AUTO 0.33 K/uL (0.8-3.3); LYMPHOCYTES PERCENT AUTO 6.5 % (11.4-47.7); MEAN CORPUSCULAR HEMOGLOBIN 26.5 pg (31.6-35.5); MEAN CORPUSCULAR HGB CONC 30.4 g/dL (31.6-35.5); MONOCYTES ABSOLUTE AUTO 0.35 K/uL (0.20-0.90); MONOCYTES PERCENT AUTO 6.9 % (3.3-12.6); NEUTROPHILS PERCENT AUTO 85.2 % (40.0-78.1); PLATELET COUNT,PLT 124 K/uL (130-375); RED BLOOD CELL COUNT 4.23 M/uL (4.14-5.76); WHITE BLOOD CELL COUNT,WBC 5.1 K/uL (3.2-11.0)
[2024-04-30 11:09] LABS: BASE EXCESS VENOUS -0.2 mm/L; BICARBONATE,VENOUS 24.1 mmol/L; CARBOXYHEMOGLOBIN 2.5 % (0.0-1.6); METHEMOGLOBIN 1.1 %; O2 SATURATION VENOUS 48.2; OXYHEMOGLOBIN 46.5 %; PCO2 VENOUS 40.5 mm/Hg; PH,VENOUS 7.393 (7.350-7.450); TOTAL HEMOGLOBIN 11.8 g/dL (13.5-18.0)
[2024-04-30 11:11] LABS: BASOPHILS ABSOLUTE AUTO 0.01 K/uL (0.00-0.10); IMMATURE GRAN ABSOLUTE AUTO 0.02 K/uL (0.00-0.23)
[2024-04-30 11:13] LABS: PO2 VENOUS 31.3 mm/Hg
[2024-04-30 11:31] LABS: INR 1.4
[2024-04-30 11:40] LABS: A/G RATIO 0.9 (1.2-2.2); ALANINE AMINOTRANSFERASE,ALT 26 U/L (12-78); ALBUMIN 2.8 g/dL (3.4-5.0); ALKALINE PHOSPHATASE 166 U/L (46-116); ANION GAP 11.5 mmol/L (5.0-14.0); ASPARTATE AMNIOTRANSFERASE,AST 28 U/L (15-37); BILIRUBIN TOTAL 1.1 mg/dL (0.2-1.0); BLOOD UREA NITROGEN,BUN 31 mg/dL (7-18); CALCIUM 8.9 mg/dL (8.5-10.1); CARBON DIOXIDE,CO2 26 mmol/L (21-32); CHLORIDE,CL 103 mmol/L (100-108); CREATININE 1.9 mg/dL (0.8-1.3); EST CRCL DRUG DOSING (CG) 33.03 mL/min; ESTIMATED GFR 35 mL/min (>60); GLUCOSE RANDOM 105 mg/dL (74-106); POTASSIUM,K 3.7 mmol/L (3.6-5.2); PROTEIN TOTAL,TP 5.9 g/dL (6.4-8.2); SODIUM,NA 140 mmol/L (140-148)
[2024-04-30 11:47] LABS: CORONAVIRUS COVID-19 NAA NEGATIVE (NEGATIVE); INFLUENZA A NAA NEGATIVE (NEGATIVE); INFLUENZA B NAA NEGATIVE (NEGATIVE); RESPIRATORY SYNCYTIAL VIR NAA NEGATIVE (NEGATIVE)
[2024-04-30 12:06] LABS: PRO B-TYPE NATRIUR PEPT,BNPPRO 22124 pg/mL (5-450)
[2024-04-30 12:29] LABS: APPEARANCE,URINE CLEAR (CLEAR); BILIRUBIN,URINE NEGATIVE (NEGATIVE); COLOR,URINE YELLOW (YELLOW); GLUCOSE,URINE 500 mg/dL (NEGATIVE); KETONES,URINE NEGATIVE (NEGATIVE); LEUKOCYTE ESTERASE,URINE NEGATIVE (NEGATIVE); NITRITE,URINE NEGATIVE (NEGATIVE); OCCULT BLOOD,URINE NEGATIVE (NEGATIVE); PH,URINE 5.5 (5.0-8.0); PROTEIN,URINE TRACE mg/dL (NEGATIVE); UROBILINOGEN,URINE 0.2 EU/dL (0.2-1.0)
[2024-04-30 12:41] LABS: RBC,URINE 0-5 (0-5); WBC,URINE 0-5 (0-5)
[2024-04-30 12:42] LABS: AMORPHOUS SEDIMENT,URINE NOT SEEN; BACTERIA,URINE NOT SEEN; EPITHELIAL CELLS,URINE RARE; MUCUS,URINE NOT SEEN
[2024-04-30] MEDS: Furosemide 40 MG/4 ML VIAL IVPUSH ONE (12:54)
[2024-04-30] MEDS: Iopamidol 755 Mg/ML 100 ML Bottle IV ONE (15:30)
[2024-04-30] MEDS: Sodium Chloride 0.9% 80 ML IV SCH (15:30)
[2024-04-30] MEDS ORDERED: Magnesium Hydroxide 400 MG/5 ML Susp 30 ML Cup PO PRN (17:46)
[2024-04-30] MEDS ORDERED: Ondansetron 4 MG Tab.DIS PO PRN (17:46)
[2024-04-30] MEDS ORDERED: LORazepam 2 MG/ML SDV IVPUSH PRN (17:46)
[2024-04-30] MEDS ORDERED: Acetaminophen 325 MG Tab PO PRN (17:46)
[2024-04-30] MEDS ORDERED: Acetaminophen/HYDROcodone 325-5 MG Tab PO PRN (17:46)
[2024-04-30] MEDS ORDERED: Sennosides/Docusate Sodium 50-8.6 MG Tab PO PRN (17:46)
[2024-04-30] MEDS ORDERED: Ondansetron 4 MG/2 ML SDV IV PRN (17:46)
[2024-04-30] MEDS ORDERED: Albuterol 0.083% 2.5 MG/3 ML Neb Soln NEB PRN (17:46)
[2024-04-30] MEDS: Sennosides 8.6 MG Tab PO SCH (20:08)
[2024-04-30] MEDS: Gabapentin 400 MG Cap PO SCH (20:08)
[2024-04-30] MEDS ORDERED: Apixaban 5 MG Tab PO SCH (21:00)
[2024-04-30] MEDS ORDERED: Non-Formulary Medication 1 Each (Melatonin [Melatonin] 10 MG Tablet) PO SCH (21:00)
[2024-04-30] MEDS: Apixaban 2.5 MG Tab PO SCH (21:02)
[2024-04-30] MEDS: Melatonin 3 MG Tab PO SCH (21:02)
[2024-05-01 05:59] LABS: HEMATOCRIT 35.7 % (38.4-49.7); HEMOGLOBIN 10.8 g/dL (12.9-16.9); MEAN CORPUSCULAR HEMOGLOBIN 26.5 pg (31.6-35.5); MEAN CORPUSCULAR HGB CONC 30.3 g/dL (31.6-35.5); MEAN CORPUSCULAR VOLUME 87.5 fL (81.4-99.0); RED BLOOD CELL COUNT 4.08 M/uL (4.14-5.76); WHITE BLOOD CELL COUNT,WBC 4.2 K/uL (3.2-11.0)
[2024-05-01 06:20] LABS: ALANINE AMINOTRANSFERASE,ALT 25 U/L (12-78); ALBUMIN 2.8 g/dL (3.4-5.0); ALKALINE PHOSPHATASE 147 U/L (46-116); ANION GAP 12.3 mmol/L (5.0-14.0); ASPARTATE AMNIOTRANSFERASE,AST 26 U/L (15-37); BILIRUBIN TOTAL 1.1 mg/dL (0.2-1.0); BLOOD UREA NITROGEN,BUN 27 mg/dL (7-18); CALCIUM 8.6 mg/dL (8.5-10.1); CARBON DIOXIDE,CO2 27 mmol/L (21-32); CHLORIDE,CL 102 mmol/L (100-108); CREATININE 1.7 mg/dL (0.8-1.3); EST CRCL DRUG DOSING (CG) 36.91 mL/min; ESTIMATED GFR 40 mL/min (>60); GLUCOSE RANDOM 81 mg/dL (74-106); POTASSIUM,K 3.6 mmol/L (3.6-5.2); PROTEIN TOTAL,TP 5.6 g/dL (6.4-8.2); SODIUM,NA 141 mmol/L (140-148)
[2024-05-01 06:41] LABS: HEMOGLOBIN A1C 5.9 % (4.5-6.2)
[2024-05-01] MEDS: Insulin Lispro 100 Unit/ML 3 ML KwikPen SUBCUT SCH (08:29)
[2024-05-01] MEDS: Empagliflozin 10 MG Tab PO SCH (08:31)
[2024-05-01] MEDS: Amiodarone 200 MG Tab PO SCH (08:31)
[2024-05-01] MEDS: Rosuvastatin 10 MG Tab PO SCH (08:31)
[2024-05-01] MEDS: Pantoprazole 40 MG Tab.CR PO SCH (08:31)
[2024-05-01] MEDS: DULoxetine 30 MG Cap PO SCH (08:31)
[2024-05-01] MEDS: Tamsulosin 0.4 MG Cap.ER PO SCH (08:31)
[2024-05-01] MEDS: Clopidogrel 75 MG Tab PO SCH (08:31)
[2024-05-01] MEDS: Bumetanide 1 MG/4 ML MDV IVPUSH SCH (08:32)
[2024-05-01] MEDS: Potassium Chloride 20 MEQ Tab.ER PO SCH (08:32)
[2024-05-01] MEDS ORDERED: Sodium Chloride 0.9% 10 ML Syringe IV PRN (09:51)
[2024-05-01] MEDS ORDERED: Bumetanide 2.5 MG/10 ML MDV IVPUSH SCH (11:30)
[2024-05-01] MEDS: Lidocaine 1% 20 ML MDV INJECT ONE (15:51)
[2024-05-02 05:33] LABS: BASOPHILS PERCENT AUTO 0.2 % (0.1-1.3); EOSINOPHILS ABSOLUTE AUTO 0.08 K/uL (0.00-0.40); EOSINOPHILS PERCENT AUTO 1.8 % (0.0-5.4); HEMATOCRIT 34.9 % (38.4-49.7); HEMOGLOBIN 10.5 g/dL (12.9-16.9); IMMATURE GRAN PERCENT AUTO 0.2 % (0.0-0.7); LYMPHOCYTES ABSOLUTE AUTO 0.46 K/uL (0.8-3.3); LYMPHOCYTES PERCENT AUTO 10.5 % (11.4-47.7); MEAN CORPUSCULAR HEMOGLOBIN 26.3 pg (31.6-35.5); MEAN CORPUSCULAR HGB CONC 30.1 g/dL (31.6-35.5); MEAN CORPUSCULAR VOLUME 87.3 fL (81.4-99.0); MONOCYTES ABSOLUTE AUTO 0.36 K/uL (0.20-0.90); MONOCYTES PERCENT AUTO 8.2 % (3.3-12.6); NEUTROPHILS ABSOLUTE AUTO 3.48 K/uL (1.0-7.6); NEUTROPHILS PERCENT AUTO 79.1 % (40.0-78.1); PLATELET COUNT,PLT 128 K/uL (130-375); WHITE BLOOD CELL COUNT,WBC 4.4 K/uL (3.2-11.0)
[2024-05-02 05:44] LABS: BASOPHILS ABSOLUTE AUTO 0.01 K/uL (0.00-0.10); IMMATURE GRAN ABSOLUTE AUTO 0.01 K/uL (0.00-0.23)
[2024-05-02] MEDS: Bumetanide 1 MG/4 ML MDV IVPUSH SCH (05:49)
[2024-05-02 06:07] LABS: A/G RATIO 0.9 (1.2-2.2); ALANINE AMINOTRANSFERASE,ALT 25 U/L (12-78); ALBUMIN 2.5 g/dL (3.4-5.0); ALKALINE PHOSPHATASE 145 U/L (46-116); ASPARTATE AMNIOTRANSFERASE,AST 24 U/L (15-37); BILIRUBIN TOTAL 0.9 mg/dL (0.2-1.0); BLOOD UREA NITROGEN,BUN 27 mg/dL (7-18); CALCIUM 8.7 mg/dL (8.5-10.1); CARBON DIOXIDE,CO2 28 mmol/L (21-32); CHLORIDE,CL 105 mmol/L (100-108); CREATININE 1.6 mg/dL (0.8-1.3); EST CRCL DRUG DOSING (CG) 39.22 mL/min; ESTIMATED GFR 43 mL/min (>60); GLUCOSE RANDOM 100 mg/dL (74-106); POTASSIUM,K 3.5 mmol/L (3.6-5.2); PROTEIN TOTAL,TP 5.2 g/dL (6.4-8.2); SODIUM,NA 141 mmol/L (140-148)
[2024-05-02 06:10] LABS: ANION GAP 11.5 mmol/L (5.0-14.0)
[2024-05-03 04:58] LABS: BASOPHILS PERCENT AUTO 0.4 % (0.1-1.3); EOSINOPHILS ABSOLUTE AUTO 0.06 K/uL (0.00-0.40); EOSINOPHILS PERCENT AUTO 1.3 % (0.0-5.4); HEMATOCRIT 36.6 % (38.4-49.7); HEMOGLOBIN 10.9 g/dL (12.9-16.9); IMMATURE GRAN PERCENT AUTO 0.4 % (0.0-0.7); LYMPHOCYTES ABSOLUTE AUTO 0.54 K/uL (0.8-3.3); LYMPHOCYTES PERCENT AUTO 12.1 % (11.4-47.7); MEAN CORPUSCULAR HEMOGLOBIN 26.1 pg (31.6-35.5); MEAN CORPUSCULAR HGB CONC 29.8 g/dL (31.6-35.5); MEAN CORPUSCULAR VOLUME 87.8 fL (81.4-99.0); MONOCYTES ABSOLUTE AUTO 0.35 K/uL (0.20-0.90); MONOCYTES PERCENT AUTO 7.8 % (3.3-12.6); NEUTROPHILS ABSOLUTE AUTO 3.49 K/uL (1.0-7.6); PLATELET COUNT,PLT 107 K/uL (130-375); RED BLOOD CELL COUNT 4.17 M/uL (4.14-5.76); WHITE BLOOD CELL COUNT,WBC 4.5 K/uL (3.2-11.0)
[2024-05-03 05:24] LABS: BASOPHILS ABSOLUTE AUTO 0.02 K/uL (0.00-0.10); IMMATURE GRAN ABSOLUTE AUTO 0.02 K/uL (0.00-0.23)
[2024-05-03] MEDS: Bumetanide 1 MG/4 ML MDV IVPUSH SCH (05:27)
[2024-05-03 05:38] LABS: A/G RATIO 0.9 (1.2-2.2); ALANINE AMINOTRANSFERASE,ALT 24 U/L (12-78); ALBUMIN 2.5 g/dL (3.4-5.0); ALKALINE PHOSPHATASE 144 U/L (46-116); ASPARTATE AMNIOTRANSFERASE,AST 24 U/L (15-37); BILIRUBIN TOTAL 0.9 mg/dL (0.2-1.0); BLOOD UREA NITROGEN,BUN 26 mg/dL (7-18); CALCIUM 8.6 mg/dL (8.5-10.1); CARBON DIOXIDE,CO2 30 mmol/L (21-32); CHLORIDE,CL 106 mmol/L (100-108); CREATININE 1.5 mg/dL (0.8-1.3); EST CRCL DRUG DOSING (CG) 41.83 mL/min; ESTIMATED GFR 47 mL/min (>60); GLUCOSE RANDOM 94 mg/dL (74-106); POTASSIUM,K 3.5 mmol/L (3.6-5.2); PROTEIN TOTAL,TP 5.2 g/dL (6.4-8.2); SODIUM,NA 143 mmol/L (140-148)
[2024-05-03 05:40] LABS: ANION GAP 10.5 mmol/L (5.0-14.0)
[2024-05-04 04:56] LABS: BASOPHILS PERCENT AUTO 0.4 % (0.1-1.3); EOSINOPHILS ABSOLUTE AUTO 0.07 K/uL (0.00-0.40); EOSINOPHILS PERCENT AUTO 1.4 % (0.0-5.4); HEMATOCRIT 35.6 % (38.4-49.7); HEMOGLOBIN 10.9 g/dL (12.9-16.9); IMMATURE GRAN ABSOLUTE AUTO 0.03 K/uL (0.00-0.23); IMMATURE GRAN PERCENT AUTO 0.6 % (0.0-0.7); LYMPHOCYTES ABSOLUTE AUTO 0.62 K/uL (0.8-3.3); LYMPHOCYTES PERCENT AUTO 12.7 % (11.4-47.7); MEAN CORPUSCULAR HEMOGLOBIN 26.8 pg (31.6-35.5); MEAN CORPUSCULAR HGB CONC 30.6 g/dL (31.6-35.5); MEAN CORPUSCULAR VOLUME 87.5 fL (81.4-99.0); MONOCYTES ABSOLUTE AUTO 0.37 K/uL (0.20-0.90); MONOCYTES PERCENT AUTO 7.6 % (3.3-12.6); NEUTROPHILS ABSOLUTE AUTO 3.77 K/uL (1.0-7.6); NEUTROPHILS PERCENT AUTO 77.3 % (40.0-78.1); PLATELET COUNT,PLT 104 K/uL (130-375); RED BLOOD CELL COUNT 4.07 M/uL (4.14-5.76); WHITE BLOOD CELL COUNT,WBC 4.9 K/uL (3.2-11.0)
[2024-05-04 05:08] LABS: BASOPHILS ABSOLUTE AUTO 0.02 K/uL (0.00-0.10)
[2024-05-04 05:20] LABS: A/G RATIO 0.9 (1.2-2.2); ALANINE AMINOTRANSFERASE,ALT 28 U/L (12-78); ALBUMIN 2.5 g/dL (3.4-5.0); ALKALINE PHOSPHATASE 156 U/L (46-116); ASPARTATE AMNIOTRANSFERASE,AST 30 U/L (15-37); BILIRUBIN TOTAL 0.9 mg/dL (0.2-1.0); BLOOD UREA NITROGEN,BUN 26 mg/dL (7-18); CALCIUM 8.7 mg/dL (8.5-10.1); CARBON DIOXIDE,CO2 29 mmol/L (21-32); CHLORIDE,CL 107 mmol/L (100-108); CREATININE 1.6 mg/dL (0.8-1.3); EST CRCL DRUG DOSING (CG) 39.22 mL/min; ESTIMATED GFR 43 mL/min (>60); GLUCOSE RANDOM 101 mg/dL (74-106); POTASSIUM,K 4.3 mmol/L (3.6-5.2); PROTEIN TOTAL,TP 5.3 g/dL (6.4-8.2); SODIUM,NA 143 mmol/L (140-148)
[2024-05-05 06:08] LABS: HEMATOCRIT 34.7 % (38.4-49.7); HEMOGLOBIN 10.6 g/dL (12.9-16.9); MEAN CORPUSCULAR HEMOGLOBIN 26.8 pg (31.6-35.5); MEAN CORPUSCULAR HGB CONC 30.5 g/dL (31.6-35.5); MEAN CORPUSCULAR VOLUME 87.6 fL (81.4-99.0); RED BLOOD CELL COUNT 3.96 M/uL (4.14-5.76); WHITE BLOOD CELL COUNT,WBC 4.7 K/uL (3.2-11.0)
[2024-05-05 06:42] LABS: A/G RATIO 0.9 (1.2-2.2); ALANINE AMINOTRANSFERASE,ALT 30 U/L (12-78); ALBUMIN 2.5 g/dL (3.4-5.0); ALKALINE PHOSPHATASE 159 U/L (46-116); ASPARTATE AMNIOTRANSFERASE,AST 41 U/L (15-37); BLOOD UREA NITROGEN,BUN 29 mg/dL (7-18); CALCIUM 8.7 mg/dL (8.5-10.1); CARBON DIOXIDE,CO2 27 mmol/L (21-32); CHLORIDE,CL 106 mmol/L (100-108); CREATININE 1.6 mg/dL (0.8-1.3); EST CRCL DRUG DOSING (CG) 39.22 mL/min; ESTIMATED GFR 43 mL/min (>60); GLUCOSE RANDOM 101 mg/dL (74-106); POTASSIUM,K 4.4 mmol/L (3.6-5.2); PROTEIN TOTAL,TP 5.4 g/dL (6.4-8.2); SODIUM,NA 141 mmol/L (140-148)
[2024-05-05] MEDS: Bumetanide 1 MG Tab PO SCH (08:27)
== END 2024-05-05 10:20 | DRG 291 ==
LOC: JP.ED 10:28 → JP.MS 16:49
PROVIDERS: ADMIT Hospitalist; ATTEND Hospitalist
PROC: 0W993ZX Drainage of Right Pleural Cavity, Percutaneous Approach, Diagnostic (ICD-10-PCS; principal; 2024-05-01)
DX: I13.0 Hypertensive heart and chronic kidney disease with heart failure and stage 1 through stage 4 chronic kidney disease, or unspecified chronic kidney disease (principal); J96.01 Acute respiratory failure with hypoxia; I48.91 Unspecified atrial fibrillation; R09.02 Hypoxemia; I25.10 Atherosclerotic heart disease of native coronary artery without angina pectoris; I50.9 Heart failure, unspecified; E11.22 Type 2 diabetes mellitus with diabetic chronic kidney disease; N18.31 Chronic kidney disease, stage 3a; F32.A Depression, unspecified; H91.90 Unspecified hearing loss, unspecified ear; H54.7 Unspecified visual loss; K59.09 Other constipation; K21.9 Gastro-esophageal reflux disease without esophagitis; Z79.84 Long term (current) use of oral hypoglycemic drugs; E78.00 Pure hypercholesterolemia, unspecified; E11.40 Type 2 diabetes mellitus with diabetic neuropathy, unspecified; I25.2 Old myocardial infarction; G47.33 Obstructive sleep apnea (adult) (pediatric); N40.0 Benign prostatic hyperplasia without lower urinary tract symptoms; Z95.5 Presence of coronary angioplasty implant and graft; Z95.0 Presence of cardiac pacemaker; Z79.01 Long term (current) use of anticoagulants; Z88.8 Allergy status to other drugs, medicaments and biological substances; Z79.02 Long term (current) use of antithrombotics/antiplatelets; Z79.899 Other long term (current) drug therapy; Z98.890 Other specified postprocedural states; Z87.891 Personal history of nicotine dependence
CPT/HCPCS: 0241U; 32555; 36415; 70450; 71045; 71275; 73564; 73700; 76377; 80053; 80307; 81001; 82803; 82947; 83036; 83605; 83880; 84145; 84484; 85025; 85027; 85379; 85610; 93005; 96125; 97110; 97116; 97162; 97165; 99223; 99232; 99239; 93010; 96374; 99285; 99285-25; A9270-GY; C1729; J1815; J1940; J3490; Q9967

== ENCOUNTER 2024-05-07 10:24 | Inpatient (IN) | payer MEDICARE ==
[2024-05-07] MEDS ORDERED: Sodium Chloride 0.9% 500 ML IV ONE (10:50)
[2024-05-07 11:12] LABS: BASOPHILS PERCENT AUTO 0.4 % (0.1-1.3); EOSINOPHILS ABSOLUTE AUTO 0.07 K/uL (0.00-0.40); EOSINOPHILS PERCENT AUTO 1.5 % (0.0-5.4); HEMATOCRIT 39.6 % (38.4-49.7); HEMOGLOBIN 11.8 g/dL (12.9-16.9); IMMATURE GRAN PERCENT AUTO 0.4 % (0.0-0.7); LYMPHOCYTES ABSOLUTE AUTO 0.52 K/uL (0.8-3.3); LYMPHOCYTES PERCENT AUTO 11.3 % (11.4-47.7); MEAN CORPUSCULAR HEMOGLOBIN 26.4 pg (31.6-35.5); MEAN CORPUSCULAR HGB CONC 29.8 g/dL (31.6-35.5); MEAN CORPUSCULAR VOLUME 88.6 fL (81.4-99.0); MONOCYTES ABSOLUTE AUTO 0.43 K/uL (0.20-0.90); MONOCYTES PERCENT AUTO 9.3 % (3.3-12.6); NEUTROPHILS ABSOLUTE AUTO 3.55 K/uL (1.0-7.6); NEUTROPHILS PERCENT AUTO 77.1 % (40.0-78.1); PLATELET COUNT,PLT 154 K/uL (130-375); RED BLOOD CELL COUNT 4.47 M/uL (4.14-5.76); WHITE BLOOD CELL COUNT,WBC 4.6 K/uL (3.2-11.0)
[2024-05-07] MEDS: Sodium Chloride 0.9% 500 ML IV ONE (11:15)
[2024-05-07] MEDS: Furosemide 40 MG/4 ML VIAL IVPUSH ONE (11:15)
[2024-05-07 11:29] LABS: INR 1.3; PROTHROMBIN TIME 13.2 sec (9.2-10.6)
[2024-05-07 11:30] LABS: BASOPHILS ABSOLUTE AUTO 0.02 K/uL (0.00-0.10)
[2024-05-07 11:31] LABS: IMMATURE GRAN ABSOLUTE AUTO 0.02 K/uL (0.00-0.23)
[2024-05-07 11:35] LABS: CORONAVIRUS COVID-19 NAA NEGATIVE (NEGATIVE); INFLUENZA A NAA NEGATIVE (NEGATIVE); INFLUENZA B NAA NEGATIVE (NEGATIVE); RESPIRATORY SYNCYTIAL VIR NAA NEGATIVE (NEGATIVE)
[2024-05-07 11:38] LABS: APPEARANCE,URINE SLIGHTLY CLOUDY (CLEAR); BILIRUBIN,URINE NEGATIVE (NEGATIVE); COLOR,URINE YELLOW (YELLOW); GLUCOSE,URINE >=1000 mg/dL (NEGATIVE); KETONES,URINE NEGATIVE (NEGATIVE); LEUKOCYTE ESTERASE,URINE NEGATIVE (NEGATIVE); NITRITE,URINE NEGATIVE (NEGATIVE); OCCULT BLOOD,URINE NEGATIVE (NEGATIVE); PROTEIN,URINE 30 mg/dL (NEGATIVE); UROBILINOGEN,URINE 0.2 EU/dL (0.2-1.0)
[2024-05-07 11:41] LABS: A/G RATIO 0.8 (1.2-2.2); ALANINE AMINOTRANSFERASE,ALT 42 U/L (12-78); ALBUMIN 2.7 g/dL (3.4-5.0); ALKALINE PHOSPHATASE 189 U/L (46-116); ANION GAP 8.7 mmol/L (5.0-14.0); ASPARTATE AMNIOTRANSFERASE,AST 44 U/L (15-37); BILIRUBIN TOTAL 0.9 mg/dL (0.2-1.0); BLOOD UREA NITROGEN,BUN 26 mg/dL (7-18); CALCIUM 8.9 mg/dL (8.5-10.1); CARBON DIOXIDE,CO2 29 mmol/L (21-32); CHLORIDE,CL 104 mmol/L (100-108); CREATININE 1.6 mg/dL (0.8-1.3); EST CRCL DRUG DOSING (CG) 39.22 mL/min; ESTIMATED GFR 43 mL/min (>60); GLUCOSE RANDOM 118 mg/dL (74-106); PRO B-TYPE NATRIUR PEPT,BNPPRO 21342 pg/mL (5-450); SODIUM,NA 142 mmol/L (140-148)
[2024-05-07 11:47] LABS: RBC,URINE 0-5 (0-5); WBC,URINE 0-5 (0-5)
[2024-05-07 11:48] LABS: AMORPHOUS SEDIMENT,URINE FEW; BACTERIA,URINE FEW; EPITHELIAL CELLS,URINE RARE; MUCUS,URINE NOT SEEN
[2024-05-07] MEDS ORDERED: Sodium Chloride 0.9% 10 ML Syringe FLUSH PRN (14:41)
[2024-05-07] MEDS ORDERED: 50% Dextrose in Water 50 ML Syringe IV PRN (14:41)
[2024-05-07] MEDS ORDERED: Ondansetron 4 MG/2 ML SDV IV PRN (14:41)
[2024-05-07] MEDS ORDERED: Glucose Gel 15 GM in 37.5 GM Tube PO PRN (14:41)
[2024-05-07] MEDS: Gabapentin 400 MG Cap PO SCH (16:03)
[2024-05-07] MEDS: Insulin Lispro 100 Unit/ML 3 ML KwikPen SUBCUT SCH (17:01)
[2024-05-07] MEDS: Bumetanide 1 MG/4 ML MDV IVPUSH SCH (20:07)
[2024-05-07] MEDS: Melatonin 3 MG Tab PO SCH (20:31)
[2024-05-07] MEDS: Apixaban 5 MG Tab PO SCH (20:31)
[2024-05-07] MEDS: Sennosides/Docusate Sodium 50-8.6 MG Tab PO SCH (20:32)
[2024-05-07] MEDS ORDERED: Sennosides 8.6 MG Tab PO SCH (21:00)
[2024-05-08 05:39] LABS: HEMATOCRIT 34.6 % (38.4-49.7); HEMOGLOBIN 10.6 g/dL (12.9-16.9); MEAN CORPUSCULAR HEMOGLOBIN 26.6 pg (31.6-35.5); MEAN CORPUSCULAR HGB CONC 30.6 g/dL (31.6-35.5); MEAN CORPUSCULAR VOLUME 86.9 fL (81.4-99.0); RED BLOOD CELL COUNT 3.98 M/uL (4.14-5.76); WHITE BLOOD CELL COUNT,WBC 4.5 K/uL (3.2-11.0)
[2024-05-08 05:48] LABS: CREATININE 1.5 mg/dL (0.8-1.3); EST CRCL DRUG DOSING (CG) 39.28 mL/min; MAGNESIUM 1.7 mg/dL (1.8-2.4); POTASSIUM,K 3.4 mmol/L (3.6-5.2)
[2024-05-08 05:50] LABS: ANION GAP 10.4 mmol/L (5.0-14.0)
[2024-05-08] MEDS: Pantoprazole 40 MG Tab.CR PO SCH (07:38)
[2024-05-08] MEDS: Potassium Chloride 20 MEQ Tab.ER PO SCH (07:40)
[2024-05-08] MEDS ORDERED: Potassium Chloride 20 MEQ Tab.ER PO ONE (08:07)
[2024-05-08] MEDS: Rosuvastatin 10 MG Tab PO SCH (08:20)
[2024-05-08] MEDS: Amiodarone 200 MG Tab PO SCH (08:20)
[2024-05-08] MEDS: DULoxetine 30 MG Cap PO SCH (08:21)
[2024-05-08] MEDS: Tamsulosin 0.4 MG Cap.ER PO SCH (08:22)
[2024-05-08] MEDS: Empagliflozin 10 MG Tab PO SCH (08:23)
[2024-05-08] MEDS: Clopidogrel 75 MG Tab PO SCH (08:24)
[2024-05-08] MEDS: Magnesium Oxide 400 MG Tab PO SCH (08:29)
[2024-05-08] MEDS: Magnesium Sulfate/Water Premix 2 GM in Premix Bag 1 BAG IV SCH (08:30)
[2024-05-08] MEDS: Potassium Chloride 20 MEQ Tab.ER PO ONE ×2 (12:10→17:05)
[2024-05-08] MEDS: Lidocaine 1% 10 ML MDV INJECT ONE (13:06)
[2024-05-09 05:54] LABS: ANION GAP 6.6 mmol/L (5.0-14.0); CALCIUM 8.5 mg/dL (8.5-10.1); CREATININE 1.5 mg/dL (0.8-1.3); EST CRCL DRUG DOSING (CG) 39.28 mL/min; MAGNESIUM 2.2 mg/dL (1.8-2.4); POTASSIUM,K 3.8 mmol/L (3.6-5.2)
[2024-05-09] MEDS: Albuterol/Ipratropium 3.0-0.5 MG/3 ML Neb Soln NEB SCH (15:03)
[2024-05-09] MEDS: predniSONE 20 MG Tab PO SCH (15:20)
[2024-05-09] MEDS: Polyethylene Glycol 3350 Powder 17 GM Packet PO PRN (17:25)
[2024-05-10 05:42] LABS: ANION GAP 6.4 mmol/L (5.0-14.0); CALCIUM 8.8 mg/dL (8.5-10.1); CREATININE 1.6 mg/dL (0.8-1.3); EST CRCL DRUG DOSING (CG) 36.82 mL/min
[2024-05-10] MEDS: Polyethylene Glycol 3350 Powder 17 GM Packet PO ONE (11:24)
[2024-05-10] MEDS: Bisacodyl 10 MG Supp RECTAL ONE (14:26)
[2024-05-10] MEDS: Sodium Phosphate,Monobasic/Sodium Phosphate,Dibasic Enema 133 ML Bottle RECTAL PRN (15:23)
[2024-05-11 05:47] LABS: ANION GAP 7.2 mmol/L (5.0-14.0); CALCIUM 8.9 mg/dL (8.5-10.1); CREATININE 1.6 mg/dL (0.8-1.3); EST CRCL DRUG DOSING (CG) 36.82 mL/min; POTASSIUM,K 3.7 mmol/L (3.6-5.2)
[2024-05-11] MEDS: Albuterol 0.083% 2.5 MG/3 ML Neb Soln NEB PRN (08:28)
[2024-05-11] MEDS ORDERED: Bumetanide 1 MG/4 ML MDV IVPUSH SCH (10:00)
[2024-05-11] MEDS: Bumetanide 1 MG/4 ML MDV IVPUSH SCH (19:10)
[2024-05-11] MEDS: guaiFENesin 100 MG/5 ML Soln 10 ML UD Cup PO PRN (20:25)
[2024-05-12 05:49] LABS: CALCIUM 8.9 mg/dL (8.5-10.1); CREATININE 1.5 mg/dL (0.8-1.3); EST CRCL DRUG DOSING (CG) 39.28 mL/min; MAGNESIUM 2.2 mg/dL (1.8-2.4); POTASSIUM,K 3.8 mmol/L (3.6-5.2)
[2024-05-12 05:57] LABS: ANION GAP 8.8 mmol/L (5.0-14.0)
[2024-05-12] MEDS: Bumetanide 2.5 MG/10 ML MDV IVPUSH SCH (18:14)
[2024-05-12] MEDS ORDERED: Naloxone 0.4 MG/ML SDV IVPUSH PRN (23:33)
[2024-05-12] MEDS: Morphine 10 MG/0.5 ML Oral Syringe PO PRN (23:51)
[2024-05-12] MEDS: Acetaminophen 325 MG Tab PO PRN (23:51)
[2024-05-12] MEDS: Benzocaine/Cetylpyridinium/Menthol Lozenge MUCMEM PRN (23:52)
[2024-05-13 05:46] LABS: CALCIUM 8.9 mg/dL (8.5-10.1); CREATININE 1.5 mg/dL (0.8-1.3); EST CRCL DRUG DOSING (CG) 39.28 mL/min; POTASSIUM,K 3.4 mmol/L (3.6-5.2)
[2024-05-13 05:49] LABS: ANION GAP 7.4 mmol/L (5.0-14.0)
[2024-05-13] MEDS: Potassium Chloride 20 MEQ Tab.ER PO ONE (08:10)
[2024-05-13] MEDS: Bumetanide 1 MG/4 ML MDV IVPUSH SCH (17:26)
[2024-05-14 05:33] LABS: CALCIUM 8.8 mg/dL (8.5-10.1); CREATININE 1.4 mg/dL (0.8-1.3); EST CRCL DRUG DOSING (CG) 41.94 mL/min; POTASSIUM,K 3.4 mmol/L (3.6-5.2)
[2024-05-14 06:23] LABS: ANION GAP 7.4 mmol/L (5.0-14.0)
[2024-05-14] MEDS: Potassium Chloride 20 MEQ Tab.ER PO SCH (08:27)
[2024-05-14] MEDS: Doxycycline 100 MG Cap PO SCH (15:08)
[2024-05-14] MEDS: Docusate Sodium 100 MG Cap PO SCH (21:39)
[2024-05-15 05:22] LABS: HEMATOCRIT 34.1 % (38.4-49.7); MEAN CORPUSCULAR HEMOGLOBIN 25.6 pg (31.6-35.5); MEAN CORPUSCULAR HGB CONC 29.3 g/dL (31.6-35.5); MEAN CORPUSCULAR VOLUME 87.4 fL (81.4-99.0); RED BLOOD CELL COUNT 3.9 M/uL (4.14-5.76); WHITE BLOOD CELL COUNT,WBC 4.4 K/uL (3.2-11.0)
[2024-05-15 05:45] LABS: ANION GAP 7.3 mmol/L (5.0-14.0); C-REACTIVE PROTEIN 3.84 mg/dL (<0.50); CALCIUM 8.8 mg/dL (8.5-10.1); CREATININE 1.3 mg/dL (0.8-1.3); EST CRCL DRUG DOSING (CG) 45.17 mL/min; POTASSIUM,K 3.3 mmol/L (3.6-5.2)
[2024-05-15] MEDS: Bisacodyl 5 MG Tab PO PRN (08:15)
[2024-05-15] MEDS: Potassium Chloride 20 MEQ Tab.ER PO SCH (08:18)
[2024-05-15] MEDS: Doxycycline 100 MG Cap PO SCH (17:13)
[2024-05-15] MEDS: Bumetanide 2.5 MG/10 ML MDV IVPUSH SCH (19:53)
[2024-05-16] MEDS: Bumetanide 1 MG/4 ML MDV IVPUSH SCH (05:45)
[2024-05-16 06:01] LABS: CALCIUM 8.7 mg/dL (8.5-10.1); CREATININE 1.2 mg/dL (0.8-1.3); EST CRCL DRUG DOSING (CG) 48.93 mL/min; POTASSIUM,K 3.2 mmol/L (3.6-5.2)
[2024-05-16 06:05] LABS: ANION GAP 6.2 mmol/L (5.0-14.0)
[2024-05-16] MEDS: Potassium Chloride 20 MEQ Tab.ER PO ONE ×2 (08:27→12:31)
[2024-05-16] MEDS: Potassium Chloride 20 MEQ Tab.ER PO SCH (15:07)
[2024-05-16] MEDS: Bumetanide 2.5 MG/10 ML MDV IVPUSH SCH (17:54)
[2024-05-17 05:34] LABS: HEMATOCRIT 32.7 % (38.4-49.7); HEMOGLOBIN 9.8 g/dL (12.9-16.9); MEAN CORPUSCULAR HEMOGLOBIN 26.1 pg (31.6-35.5); RED BLOOD CELL COUNT 3.76 M/uL (4.14-5.76); WHITE BLOOD CELL COUNT,WBC 4.6 K/uL (3.2-11.0)
[2024-05-17 05:54] LABS: C-REACTIVE PROTEIN 4.34 mg/dL (<0.50); CALCIUM 8.8 mg/dL (8.5-10.1); CREATININE 1.2 mg/dL (0.8-1.3); EST CRCL DRUG DOSING (CG) 48.93 mL/min; POTASSIUM,K 3.7 mmol/L (3.6-5.2)
[2024-05-17 05:55] LABS: ANION GAP 5.7 mmol/L (5.0-14.0)
[2024-05-17] MEDS: Amiodarone 200 MG Tab PO ONE (13:44)
[2024-05-18 05:51] LABS: ANION GAP 6.1 mmol/L (5.0-14.0); CALCIUM 8.9 mg/dL (8.5-10.1); CREATININE 1.3 mg/dL (0.8-1.3); EST CRCL DRUG DOSING (CG) 45.17 mL/min; POTASSIUM,K 4.1 mmol/L (3.6-5.2)
[2024-05-18] MEDS: Amiodarone 200 MG Tab PO SCH (09:51)
[2024-05-18] MEDS: Spironolactone 25 MG Tab PO SCH (09:55)
[2024-05-19 05:18] LABS: CALCIUM 8.9 mg/dL (8.5-10.1); CREATININE 1.4 mg/dL (0.8-1.3); EST CRCL DRUG DOSING (CG) 41.94 mL/min; POTASSIUM,K 3.4 mmol/L (3.6-5.2)
[2024-05-19 05:35] LABS: ANION GAP 7.4 mmol/L (5.0-14.0)
[2024-05-19] MEDS: Potassium Chloride 20 MEQ Tab.ER PO ONE ×2 (09:27→17:38)
[2024-05-19 13:40] LABS: BASOPHILS PERCENT AUTO 0.5 % (0.1-1.3); EOSINOPHILS ABSOLUTE AUTO 0.05 K/uL (0.00-0.40); EOSINOPHILS PERCENT AUTO 1.2 % (0.0-5.4); HEMATOCRIT 31.6 % (38.4-49.7); HEMOGLOBIN 9.4 g/dL (12.9-16.9); IMMATURE GRAN PERCENT AUTO 0.5 % (0.0-0.7); LYMPHOCYTES ABSOLUTE AUTO 0.52 K/uL (0.8-3.3); MEAN CORPUSCULAR HGB CONC 29.7 g/dL (31.6-35.5); MEAN CORPUSCULAR VOLUME 87.5 fL (81.4-99.0); MONOCYTES ABSOLUTE AUTO 0.39 K/uL (0.20-0.90); NEUTROPHILS ABSOLUTE AUTO 3.32 K/uL (1.0-7.6); NEUTROPHILS PERCENT AUTO 76.8 % (40.0-78.1); PLATELET COUNT,PLT 110 K/uL (130-375); RED BLOOD CELL COUNT 3.61 M/uL (4.14-5.76); WHITE BLOOD CELL COUNT,WBC 4.3 K/uL (3.2-11.0)
[2024-05-19 13:42] LABS: BASOPHILS ABSOLUTE AUTO 0.02 K/uL (0.00-0.10); IMMATURE GRAN ABSOLUTE AUTO 0.02 K/uL (0.00-0.23)
[2024-05-20 06:01] LABS: CALCIUM 9.1 mg/dL (8.5-10.1); CREATININE 1.4 mg/dL (0.8-1.3); EST CRCL DRUG DOSING (CG) 41.94 mL/min; MAGNESIUM 1.9 mg/dL (1.8-2.4); POTASSIUM,K 3.9 mmol/L (3.6-5.2)
[2024-05-20 06:32] LABS: ANION GAP 8.9 mmol/L (5.0-14.0)
[2024-05-21 06:11] LABS: CREATININE 1.5 mg/dL (0.8-1.3); EST CRCL DRUG DOSING (CG) 39.15 mL/min; POTASSIUM,K 3.4 mmol/L (3.6-5.2)
[2024-05-21 06:29] LABS: ANION GAP 6.4 mmol/L (5.0-14.0)
[2024-05-21] MEDS: Potassium Chloride 20 MEQ Tab.ER PO ONE ×2 (12:16→17:56)
[2024-05-21] MEDS: Potassium Chloride 20 MEQ Tab.ER ONE ×2 (12:28→12:29)
[2024-05-22 05:48] LABS: ANION GAP 5.8 mmol/L (5.0-14.0); CREATININE 1.5 mg/dL (0.8-1.3); EST CRCL DRUG DOSING (CG) 39.15 mL/min; POTASSIUM,K 3.8 mmol/L (3.6-5.2)
[2024-05-22] MEDS: Ondansetron 4 MG Tab.DIS PO ONE (12:44)
[2024-05-22 13:48] VITALS: BP 80/50; PULSE 76
== END 2024-05-22 13:50 | DRG 291 ==
LOC: JP.ED 10:24 → JP.ICU 13:01 → JP.MS 05-20 16:52
PROVIDERS: ADMIT Hospitalist; ATTEND Hospitalist
PROC: 0W9B3ZZ Drainage of Left Pleural Cavity, Percutaneous Approach (ICD-10-PCS; principal; 2024-05-08)
DX: I11.0 Hypertensive heart disease with heart failure (principal); I13.0 Hypertensive heart and chronic kidney disease with heart failure and stage 1 through stage 4 chronic kidney disease, or unspecified chronic kidney disease; I50.43 Acute on chronic combined systolic (congestive) and diastolic (congestive) heart failure; J96.01 Acute respiratory failure with hypoxia; I47.20 Ventricular tachycardia, unspecified; E11.9 Type 2 diabetes mellitus without complications; I42.9 Cardiomyopathy, unspecified; Z66 Do not resuscitate; I25.10 Atherosclerotic heart disease of native coronary artery without angina pectoris; E11.22 Type 2 diabetes mellitus with diabetic chronic kidney disease; H54.7 Unspecified visual loss; I48.91 Unspecified atrial fibrillation; E78.00 Pure hypercholesterolemia, unspecified; K59.09 Other constipation; K21.9 Gastro-esophageal reflux disease without esophagitis; E11.40 Type 2 diabetes mellitus with diabetic neuropathy, unspecified; D63.1 Anemia in chronic kidney disease; F03.90 Unspecified dementia, unspecified severity, without behavioral disturbance, psychotic disturbance, mood disturbance, and anxiety; G47.33 Obstructive sleep apnea (adult) (pediatric); N18.32 Chronic kidney disease, stage 3b; J20.9 Acute bronchitis, unspecified; E87.6 Hypokalemia; Z85.820 Personal history of malignant melanoma of skin; Z98.49 Cataract extraction status, unspecified eye; Z88.8 Allergy status to other drugs, medicaments and biological substances; Z79.02 Long term (current) use of antithrombotics/antiplatelets; Z79.899 Other long term (current) drug therapy; Z95.810 Presence of automatic (implantable) cardiac defibrillator; I25.2 Old myocardial infarction; Z95.5 Presence of coronary angioplasty implant and graft; Z98.890 Other specified postprocedural states; Z51.5 Encounter for palliative care; Z79.01 Long term (current) use of anticoagulants; Z99.81 Dependence on supplemental oxygen; Z87.891 Personal history of nicotine dependence; Z86.79 Personal history of other diseases of the circulatory system; Z82.49 Family history of ischemic heart disease and other diseases of the circulatory system
CPT/HCPCS: 0241U; 32555; 36415; 71045; 71045-26; 71046; 71046-26; 80048; 80053; 81001; 82947; 83605; 83735; 83880; 84132; 84145; 84484; 85025; 85027; 85610; 86140; 93005; 93010; 93306; 94640; 96374; 97110-GP; 97161-GP; 97530-GP; 99285; 99285-25; A9270-GY; C1729; J1815; J1940; J3475; J3490; J7040; J7512; J7620; Q0162